=== PATIENT | female | born 1990 | race Caucasian/White ===

== ENCOUNTER 2018-01-24 19:30 | Outpatient (CLI) | END 2018-01-24 22:05 | disposition home or self-care (01) ==

== ENCOUNTER 2018-02-14 23:52 | Outpatient (CLI) | END 2018-02-15 02:40 | disposition home or self-care (01) ==

== ENCOUNTER 2018-02-16 20:45 | Inpatient (IN) | END 2018-02-20 17:00 | disposition home or self-care (01) | DRG 788 ==

== ENCOUNTER 2018-03-01 02:24 | Emergency (ER) | END 2018-03-01 04:24 | disposition home or self-care (01) ==